=== PATIENT | female | born 1950 ===

== ENCOUNTER 2023-03-18 14:13 | Emergency (ER) | payer MEDICARE ==
[~2023-03-18 14:13] MED LIST: Iopamidol-370 76% 500 ML MDV (1 ML CHARGE) ONE
[2023-03-18 14:48] LABS: #Basophils 0.1 thou/uL (0.0-0.2); #Eosinphils 0.5 thou/uL (0.0-0.7); #Monocytes 0.3 thou/uL (0.11-0.59); #Neutrophils 2.5 thou/uL (1.40-6.50); %Basophils 1.5 % (0.0-1.0); %Eosinophils 9.4 % (0.0-10.0); %Lymphocytes 35.9 % (21.0-51.0); %Neutrophils 48.2 % (42.0-75.0); Hematocrit 41.6 % (36.0-47.0); Hemoglobin 13.2 g/dL (12.0-16.0); Mean Corpuscular HGB CONC 31.7 g/dL (32.0-36.0); Mean Corpuscular Hemoglobin 27.7 pg (27.0-31.0); Mean Corpuscular Volume 87.4 fl (78.0-98.0); Mean Platelet Volume 9.8 fL (7.4-10.4); Platelet Count 227 10x3/uL (130-400); Red Blood Cell (RBC) Count 4.76 mill/uL (4.20-5.40); White Blood Cell (WBC) Count 5.2 10x3/uL (4.8-10.8)
[2023-03-18 15:11] LABS: ALT (SGPT) 19 U/L (8-55); AST (SGOT) 17 U/L (5-34); Alkaline Phosphatase 48 U/L (40-110); Anion Gap 11 mmol/L (10-20); BUN (Urea Nitrogen) 12 mg/dL (9.8-20.1); Bilirubin, Total 0.3 mg/dL (0.2-1.2); Calc. Creatinine Clearance 0 mL/min (70-130); Calcium 9.5 mg/dL (7.8-10.44); Carbon Dioxide 28 mmol/L (23-31); Chloride 104 mmol/L (98-107); Estimated GFR 88; Globulin 2.1 g/dL (2.4-3.5); Glucose 170 mg/dL (83-110); Protein, Total 6.1 g/dL (5.8-8.1); Sodium 139 mmol/L (136-145)
[2023-03-18 15:14] LABS: Troponin I Less than 0.010 ng/mL (< 0.028)
[2023-03-18] MEDS ORDERED: methylPREDNISolone Sod Succ/PF 125 MG/2 ML VIAL ONE (16:03)
[2023-03-18 16:09] LABS: Bacteria/HPF None Seen HPF (None Seen); Bilirubin Negative (Negative); Blood, Urine Negative (Negative); CAUTI Indications for Culture Acute Hematuria; Clarity Clear (Clear); Glucose, Urine (Dipstick) Normal (Negative); Ketone, Urine Negative (Negative); Leukocyte Negative Leu/uL (Negative); Nitrite Negative (Negative); Protein, Urine (Dipstick) Negative (Neg-Trace); RBC/HPF None Seen HPF (0-3); Specific Gravity, Urine 1.012 (1.002-1.036); Squamous Epithelial None Seen HPF (0-3); Urobilinogen Normal mg/dL (Less than 2); WBC/HPF None Seen HPF (0-3)
[2023-03-18] MEDS ORDERED: Ipratropium/Albuterol 3 ML NEB ONE (16:13)
[2023-03-18 16:17] LABS: Urine Culture Reflex No No
[2023-03-18 16:44] LABS: SARS-CoV-2 NAA Rapid Test Not Detected (NotDetected)
[2023-03-18] MEDS ORDERED: Amoxicillin/Potassium Clav 875 MG TAB ONE (19:21)
[2023-03-18] MEDS ORDERED: HYDROcodone/Acetaminophen 5/325 mg Tablet ONE (19:34)
== END 2023-03-18 19:40 | disposition home or self-care (01) ==
LOC: ERS 14:13
DX: J18.9 Pneumonia, unspecified organism (principal); M25.461 Effusion, right knee; T84.622A Infection and inflammatory reaction due to internal fixation device of right tibia, initial encounter; I48.91 Unspecified atrial fibrillation; E78.5 Hyperlipidemia, unspecified; Z79.4 Long term (current) use of insulin; Z79.899 Other long term (current) drug therapy; Z20.822 Contact with and (suspected) exposure to COVID-19
CPT/HCPCS: 0240U; 71045; 71275; 73564; 80053; 81001; 83880; 84484; 85025; 85610; 85730; 93005; 93971; 36415; 96374; J2930; J7620; Q9967

== ENCOUNTER 2023-03-26 13:30 | Emergency (ER) | payer MEDICARE ==
[2023-03-26] MEDS ORDERED: Ipratropium/Albuterol 3 ML NEB ONE (16:23)
== END 2023-03-26 18:44 | disposition home or self-care (01) ==
LOC: ERS 13:30
DX: J40 Bronchitis, not specified as acute or chronic (principal); E11.9 Type 2 diabetes mellitus without complications; E78.5 Hyperlipidemia, unspecified; I10 Essential (primary) hypertension; Z79.899 Other long term (current) drug therapy; Z79.84 Long term (current) use of oral hypoglycemic drugs
CPT/HCPCS: 71046; J7620